=== PATIENT | female | born 1975 | race Caucasian/White ===

== ENCOUNTER 2017-06-06 10:34 | Emergency (ER) | payer OTHER ==
[~2017-06-06] VITALS: Wt 100.0 kg
--- NOTE | 2017-06-06 11:42 | ERD ---
ER Documentation Chief Complaint Date/Time DATE: 06/06/17 Chief Complaint Left knee pain. Back pain. HPI The patient is a 42-year-old female who presents to the Emergency Department with complaint of upper back pain and left knee pain. The patient reports that two days ago she was cracking her back, when she developed pain to the bilateral paraspinal muscles of the thoracic back, extending towards the trapezius muscles, and up towards the right paracervical muscle. The pain has been constant since, gradually improving, and describes as tight and "pushing on a bruise." She rates her current pain as 7/10, and notes that it is worse with movement and palpation. She has not yet tried any medication for pain relief. She denies any visual changes, diplopia, blurred vision, vision loss. Denies neck stiffness, loss of consciousness, weakness of her extremities. Denies bowel or bladder disturbances, urinary retention, or lower extremity numbness, weakness or tingling. Otherwise, she denies any recent falls, injury or trauma. Denies weakness or difficulty holding her head up. Denies history of IV drug use. Denies dysuria, hematuria or flank pain. Denies recent URI symptoms. She also reports unrelated left knee pain for the past 2 weeks. The patient reports that her symptoms were most severe two weeks ago, with onset of 5/10 throbbing pain to the left knee, with associated swelling. After onset of these symptoms the patient was seen by her primary medical provider, who sent the patient for an x-ray. Since, the patient has noted spontaneous improvement in her symptoms and swelling, with only minimal persistent pain at this time, and swelling to the suprapatellar region. She notes some discomfort upon flexion of the knee, but denies any restricted range of motion. Denies numbness, paresthesias or weakness of the distal extremity. Denies calf swelling or tenderness. Prior to arrival today the patient called her primary medical provider's office regarding her x-ray results and was told that "everything is normal." She denies any redness or warmth to the knee. The pain is worse with movement, but not with ambulation or weight-bearing activity. She denies any recent falls, injury or trauma to the knee. Denies recent fevers, sweats, chills , nausea or vomiting. No other complaints at this time. ROS All systems reviewed and are negative except as per history of present illness. Medications Home Meds Active Scripts Cyclobenzaprine Hcl* (Cyclobenzaprine Hcl*) 10 Mg Tablet, 10 MG PO TID, #15 TAB Prov:RANJITH CHAVEZ COLIN 06/06/17 Naproxen* (Naprosyn*) 500 Mg Tablet, 500 MG PO BID Y for PAIN AND/OR INFLAMMATION, #30 TAB Prov:KATHYRANJITH PA-C 06/06/17 Hydrocodone/Acetaminophen ([place] 5-325 Tablet) 1 Each Tablet, 1 EACH PO Q6, #8 TAB Prov:RANJITH CHAVEZ COLIN 06/06/17 Reported Medications [None] No Conflict Check 07/15/13 Allergies Allergies: Coded Allergies: No Known Drug Allergies (Verified Allergy, Mild, 07/10/14) PMhx/Soc History of Surgery: Yes (CS;BTL;ECTOPIC ) Anesthesia Reaction: Yes (VOMITING) Hx Neurological Disorder: Yes (MIGRAINES) Hx Respiratory Disorders: No Hx Cardiac Disorders: No Hx Psychiatric Problems: No Hx Miscellaneous Medical Probl: No Hx Alcohol Use: No Hx Substance Use: No Hx Tobacco Use: No Physical Exam Vitals Vital Signs Date Time Temp Pulse Resp B/P Pulse Ox O2 Delivery O2 Flow Rate FiO2 06/06/17 14:19 98.3 69 20 130/60 98 Room Air 06/06/17 10:38 98.0 88 20 139/65 98 Physical Exam GENERAL: Well-developed, well-nourished, in no acute distress. HEENT: Head is normocephalic, atraumatic. No scleral pallor or icterus. Pupils equal, round and reactive to light. Extraocular movements intact. Conjunctiva pink. Moist mucous membranes. NECK: Supple. Trachea midline. No nuchal rigidity. Full range of motion. Tenderness to palpation with spasm palpated to the right trapezius muscle and right paracervical muscles. No posterior midline bony tenderness. No step offs. Negative Spurling maneuver. RESPIRATORY: Lungs are clear to auscultation bilaterally. Equal breath sounds. Normal expiratory effort. CARDIOVASCULAR: Regular rate and rhythm. S1 and S2 normal. GASTROINTESTINAL: Abdomen is soft, nontender, and nondistended. FLANK: No CVA tenderness. BACK: Tenderness to palpation with palpable spasm to the paraspinal muscles of the thoracic back, right > left. No midline tenderness. No bony tenderness. No step offs. No crepitus. No gross deformities. No saddle-region anesthesia. No foot drop. EXTREMITIES: No clubbing or cyanosis. Normal skin perfusion. Mild swelling and tenderness to palpation to the left suprapatellar region. Mild pain with flexion of the left knee. No pain with extension. No crepitus appreciated. No gross deformities. No focal warmth or erythema. Negative Shaneka test. No increased laxity with varus or valgus stress applied. No distal tib/fib tenderness. DP/PT pulses 2+. Capillary refill is less than 2 seconds. Muscle tone is normal. Compartments are soft. No abnormal bony prominences. Distal neurovascular status intact. No foot drop. No calf swelling or calf tenderness. No cords. NEUROLOGIC: The patient is alert, awake, and oriented x 3. No focal neurologic deficits. Motor normal in all extremities. Sensation grossly intact. Speech is normal. Normal cyber security administrator strength bilaterally. INTEGUMENT: Skin is clean, dry and intact. No rashes, lesions or petechiae present. Normal turgor. PSYCHIATRIC: Appropriate; Cooperative. Results 24 hrs Current Medications Medications (Trade) Dose Ordered Sig/Carrie Route PRN Reason Start Time Stop Time Status Last Admin Dose Admin Ketorolac Tromethamine (Toradol) 60 mg ONCE STAT IM 06/06/17 11:56 06/06/17 11:57 DC 06/06/17 12:33 Procedures/MDM DIAGNOSTIC TESTS AND INTERPRETATION: PROCEDURE: XR Cervical Spine. CLINICAL INDICATION: Neck pain TECHNIQUE: AP, lateral, oblique and odontoid views of the cervical spine were performed. The images were reviewed on a PACS workstation. COMPARISON: None. FINDINGS:The vertebral body alignment, height and osseous mineralization are normal. There is no acute fracture or subluxation.The intervertebral disc spaces are well maintained. There are no abnormal calcifications. The prevertebral soft tissues are normal. No radiopaque foreign bodies are identified. IMPRESSION:Normal cervical spine. Physician Rosita Date Time Electronically viewed and signed by Physician Rosita on 06/06/2017 13: 27 PROCEDURE: XR thoracic Spine. CLINICAL INDICATION: Pain TECHNIQUE: AP, lateral and swimmer's views of the thoracic spine were obtained. COMPARISON: No prior studies are available for comparison. FINDINGS:There is normal vertebral mineralization.There is minimal S-shaped thoracolumbar scoliosis. No acute fracture or subluxation is seen. There are minimal multilevel degenerative disk disease changes of the mid thoracic spine.The posterior elements are unremarkable. The soft tissues appear normal. IMPRESSION: 1. Minimal S-shaped thoracolumbar scoliosis. 2. No acute fracture or subluxation. 3. Minimal degenerative disk disease changes of the mid thoracic spine. Physician Rosita Date Time Electronically viewed and signed by Physician Rosita on 06/06/2017 14: 39 EMERGENCY DEPARTMENT COURSE: The patient was stable throughout the ED course. Toradol 60 mg IM administered. Elpidio wrap applied to the patient's left knee. X- ray imaging performed of the C-spine and thoracic back. On reevaluation the patient reports improvement in her symptoms, and notes significantly decreased discomfort with movement. ELPIDIO WRAP APPLICATION: INDICATION: Left knee pain, swelling. LOCATION: Left lower extremity, knee. NEUROVASCULAR EXAM: The patients extremity was neurovascularly intact prior to and status post elpidio wrap placement. MEDICAL DECISION MAKING: This is a 42-year-old female presenting to the emergency department with a complaint of thoracic back pain extending into the trapezius muscles and right paracervical muscles for the past 2 days, after cracking her back. The patient had paraspinal muscle spasm and tenderness on physical examination. Otherwise, vital signs are stable. The patient had no presence of posterior midline cervical tenderness. Additionally, patient reports left knee pain and swelling (which has been improving) for the past 2 weeks. She had some tenderness and swelling to the suprapatellar region of the left knee on examination, but no crepitus, no gross deformities, no erythema or warmth. The differential diagnosis includes, but is not limited to, spinal cord trauma, fracture, dislocation, subluxation, infection, vertebral artery dissection, carotid artery dissection, whiplash injury, radiculopathy, myelopathy, cervical spine fracture, cervical spine dislocation, thoracic trauma , strain, sprain, contusion, cauda equina syndrome, vertebral fracture, herniated disk. After rest and administration of Toradol, the patient reports no new complaints and decreased pain. Upon my review and interpretation of the patient's presentation and overall ER course, I believe that the patient's symptoms are most consistent with paraspinal muscle spasm, thoracic strain and left knee pain/swelling. No clinical findings to suggest fracture, dislocation, subluxation, septic joint. At this time, the patient is in stable condition with stable vital signs, and, therefore, can be discharged home with prescriptions for Naproxen, [place] and Flexeril with strict return precautions for signs of deteriorating condition or worsening condition. She is advised to follow up with her primary care provider for reevaluation and further management within the next 1-2 days or to return to the ER sooner for any worsening symptoms. I shared my medical decision making with the patient at length and in great detail, and the patient verbally understands and agrees with the plan for further observation and care as an outpatient. At the time of discharge, all questions were answered. Departure Diagnosis: Primary Impression: Strain of thoracic region Encounter type: initial encounter Qualified Code: S29.019A - Strain of thoracic region, initial encounter Additional Impressions: Muscle spasm Left knee pain Chronicity: acute Qualified Code: M25.562 - Acute pain of left knee Condition: Stable Patient Instructions: Back Spasm, No Trauma, Muscle Spasm, Muscle Spasm, Neck Spasm, No Trauma Additional Instructions: Call your primary care doctor TOMORROW for an appointment during the next 2-3 days.See the doctor sooner or return here if your condition worsens before your appointment time. RANJITH CHAVEZ PA-C Jun 06, 2017 11:42
[2017-06-06] MEDS ORDERED: KETOROLAC 60 MG INJ IM STA (11:56)
--- NOTE | 2017-06-06 13:27 | RADRPT ---
PROCEDURE: XR Cervical Spine. CLINICAL INDICATION: Neck pain TECHNIQUE: AP, lateral, oblique and odontoid views of the cervical spine were performed. The image s were reviewed on a PACS workstation. COMPARISON: None. FINDINGS: The vertebral body alignment, height and osseous mineralization are normal. There is no acute fracture or subluxation. The intervertebral disc spaces are well maintained. There are no abnormal calcifications. The prevertebral soft tissues are normal. No radiopaque foreign bodies are identified. IMPRESSION: Normal cervical spine. RPTAT: PP Physician Rosita Date Time Electronically viewed and signed by Physician Rosita on 06/06/2017 13:27 RC/
[2017-06-06] MEDS ORDERED: NAPR-260 PO (13:58)
[2017-06-06] MEDS ORDERED: HYDR-906 PO (13:58)
[2017-06-06] MEDS ORDERED: CYCL-319 PO (13:58)
[2017-06-06 14:19] VITALS: BP 130/60; PULSE 69; RESP 20; TEMP 98.3
--- NOTE | 2017-06-06 14:39 | RADRPT ---
PROCEDURE: XR thoracic Spine. CLINICAL INDICATION: pain TECHNIQUE: AP, lateral and swimmer's views of the thoracic spine were obtained. COMPARISON: No prior studies are available for comparison. FINDINGS: There is normal vertebral mineralization. There is minimal S-shaped thoracolumbar scoliosis. No acute fracture or subluxation is seen. There are minimal multilevel degenerative disk disease changes of the mid thoracic spine. The posterior elements are unremarkable. The soft tissues appear normal. IMPRESSION: 1. Minimal S-shaped thoracolumbar scoliosis. 2. No acute fracture or subluxation. 3. Minimal degenerative disk disease changes of the mid thoracic spine. RPTAT: PP Physician Rosita Date Time Electronically viewed and signed by Physician Rosita on 06/06/2017 14:39 /
== END 2017-06-06 14:20 | disposition home or self-care (01) ==
LOC: FTE 10:34
DX: S29.019A Strain of muscle and tendon of unspecified wall of thorax, initial encounter (principal); M62.830 Muscle spasm of back; M25.562 Pain in left knee; X58.XXXA Exposure to other specified factors, initial encounter; Y92.9 Unspecified place or not applicable
CPT/HCPCS: 72040; 72072; 96372; J1885; Z7502